=== PATIENT | male | born 1980 | race Hispanic/Latino ===

== ENCOUNTER 2017-11-27 03:46 | Emergency (ER) | payer OTHER ==
[2017-11-27 04:02] VITALS: TEMP 98.2; BMI 28.2
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
[2017-11-27 06:26] VITALS: PULSE 81; RESP 16; O2SAT 97
[2017-11-27 07:19] VITALS: BP 135/74
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
== END 2017-11-27 07:18 | disposition home or self-care (01) ==
LOC: ED 03:46
DX: Z04.1 Encounter for examination and observation following transport accident (principal); V49.50XA Passenger injured in collision with unspecified motor vehicles in traffic accident, initial encounter; Y92.410 Unspecified street and highway as the place of occurrence of the external cause